=== PATIENT | female | born 1985 | race Caucasian/White ===

== ENCOUNTER 2020-09-04 19:26 | Emergency (ER) | payer OTHER, SELFPAY ==
--- NOTE | ~2020-09-04 | XR_ITS ---
EXAMINATION: XR chest 2V EXAM DATE: 09/04/2020 20:00 INDICATION: Left-sided chest pain radiating to back. TECHNIQUE: Frontal and lateral projections of the chest obtained and reviewed. There is no prior mad[place] dy for comparison. FINDINGS: The lungs are clear. There are no pleural effusions. The cardiomediastinal silhouette is within normal limits. There is no pneumothorax suspected. The bones and soft tissues are unremarkab le. IMPRESSION: Unremarkable chest x-ray exam. Reviewed, dictated and finalized at location A.
--- NOTE | 2020-09-04 19:33 | ECG_ITS ---
Measurements Intervals [place] Rate: 87 P: 52 PA: 152 QRS: 32 QRSD: 105 T: 56 QT: 358 QTc: 432 Interpretive Statements SINUS RHYTHM NORMAL ECG Electronically Signed On 09-05-2020 6:29:54 CDT by Sergey David D.O.
[2020-09-04 19:46] LABS: Basophils Absolute Auto 0.1 K/mm3 (0.0-0.1); Basophils Percent Auto 0.6 % (0.2-1.2); Eosinophils Absolute Auto 0.2 K/mm3 (0-0.3); Eosinophils Percent Auto 2.6 % (0-4.4); Hematocrit 41.6 % (37.0-47.0); Hemoglobin 13.4 g/dL (12.0-15.0); Immature Granulocyte Absolute 0.02 K/mm3 (0.00-0.031); Immature Granulocyte Percent A 0.2 % (0-0.5); Lymphocytes Absolute Auto 3.64 K/mm3 (0.9-3.2); Lymphocytes Percent Auto 38.7 % (18.3-44.2); Mean Corpuscular HGB Conc 32.2 g/dl (32-36); Mean Corpuscular Hemoglobin 27.6 pg (26-34); Mean Corpuscular Volume 85.8 fl (80-100); Mean Platelet Volume 10.8 fl (7.4-10.4); Monocytes Absolute Auto 0.6 K/mm3 (0.1-0.6); Monocytes Percent Auto 5.9 % (2.6-8.5); Neutrophils Absolute Auto 4.9 K/mm3 (1.3-6.7); Platelet Count Result 263 k/mm3 (150-375); Red Blood Count 4.85 M/mm3 (4.2-5.4); Red Cell Distribution Width 13.2 % (11.5-14.5); White Blood Count 9.4 K/mm3 (4.5-10.0)
[2020-09-04 19:57] LABS: Anion Gap 12 mmol/L (8-16); Blood Urea Nitrogen 12 mg/dL (7-17); Carbon Dioxide 26 mmol/L (22-30); Chloride 101 mmol/L (98-107); Estimated Glomerular Filt Rate > 60; Glucose 81 mg/dL (65-105); Potassium 3.7 mmol/L (3.4-5.0); Sodium 139 mmol/L (137-145)
[2020-09-04 20:06] VITALS: BP 145/92; PULSE 70; RESP 16; TEMP 36.8; O2SAT 100
[2020-09-04 20:09] LABS: Troponin I < 0.012 ng/mL (0.000-0.034)
[2020-09-04 20:31] LABS: Partial Thromboplastin Time 30.4 SECONDS (22.3-36.8)
[2020-09-04 22:56] VITALS: BP 122/82; PULSE 64; RESP 12; TEMP 36.6; O2SAT 100
[2020-09-04 23:29] LABS: Troponin I < 0.012 ng/mL (0.000-0.034)
[2020-09-04 23:42] VITALS: BP 124/69; PULSE 63; RESP 17; O2SAT 100
--- NOTE | 2020-09-04 23:53 | ED.CHESTPAIN ---
HPI - Chest Pain General Chief Complaint: Chest Pain Stated Complaint: chest discomfort Time Seen by Provider: 09/04/20 23:30 Source: patient and RN notes reviewed Mode of arrival: ambulatory Limitations: no limitations History of Present Illness HPI narrative: This is a 35 year old female who presents for evaluation of left chest pain. She states she has been having intermittent left chest pain for 2 weeks . She states this seems to occur when she gets stressed. She became worried today because she developed pain when she was not stressed. This pain is associated with abdominal bloating and increased belching as well. She denies sob, nausea, vomiting , cough or fever. She reports diarrhea 2 weeks ago. She reports normal bowel movements. She took Tums today without relief. She denies having chest pain currently but she feels abdominal bloating. Related Data Allergies Allergy/AdvReac Type Severity Reaction Status Date / Time shellfish derived Allergy Severe Swelling Verified 09/04/20 23:51 of Lip/Tongue/Throat Review of Systems Review of Systems: All systems reviewed & are unremarkable except as noted in HPI and below PMFSH Past Medical History Medical History (Updated 09/05/20 @ 00:45 by Minda Granger MD) Patient denies medical problems Surgical History Surgical History (Updated 09/04/20 @ 23:58 by Minda Granger MD) H/O section Family History Family History (Updated 11/07/15 @ 09:10 by DOCTOR UNKNOWN) Grandparent Diabetes mellitus Family history of mental disorder Hypertension Family history of elevated blood lipids Family history of arthritis Family history of aortic aneurysm Family history of type 2 diabetes mellitus Mother Family history of mental disorder Father Family history of elevated blood lipids Other Family history of cardiovascular disease Family history of malignant neoplasm Social History Social History Smoking status: Never smoker Alcohol intake: current Exam Const: General: no acute distress and alert Orientation/consciousness: patient oriented x3 Eyes: EOM: EOMs intact bilaterally Resp: Effort & Inspection: normal respiratory effort and no retractions Auscultation: clear to auscultation bilaterally Cardio: Rate: regular rate Rhythm: regular rhythm Heart sounds: no murmurs GI: GI Palp: Yes Soft to palpation, No Tenderness to palpation present (GI) and No Guarding due to palpation present (GI) Auscultation: normal bowel sounds Neuro: General: patient oriented x3, moves all extremities and CN's II-XI intact bilaterally Extrem: General: normal to inspection Psych: Mental Status: mental status grossly normal Affect: normal affect Course Reevaluation(s) Reevaluation #1: I have discussed with patient labs and EKG are unremarkable. Her symptoms are likely GI. She states she feels better after GI cocktail Date: 09/05/20 Time: 00:44 Vital Signs Vital signs: Vital Signs Temperature 98.3 F 09/04/20 20:06 Pulse Rate 70 09/04/20 20:06 Respiratory Rate 16 09/04/20 20:06 Blood Pressure 145/92 H 09/04/20 20:06 Pulse Oximetry 100 09/04/20 20:06 Temperature 97.8 F 09/04/20 22:56 Pulse Rate 63 09/04/20 23:42 Respiratory Rate 17 09/04/20 23:42 Blood Pressure 124/69 09/04/20 23:42 Pulse Oximetry 100 09/04/20 23:42 MDM - Chest Pain Lab Data Attestation: I reviewed the patient's lab results. Result diagrams: 09/04/20 19:40 09/04/20 19:40 Labs: Lab Results 09/04/20 09/04/20 09/04/20 Range/Units 19:40 19:40 19:40 WBC 9.4 (4.5-10.0) K/mm3 RBC 4.85 (4.2-5.4) M/mm3 Hgb 13.4 (12.0-15.0) g/dL Hct 41.6 (37.0-47.0) % MCV 85.8 (80-100) fl MCH 27.6 (26-34) pg MCHC 32.2 (32-36) g/dl RDW 13.2 (11.5-14.5) % Plt Count 263 (150-375) k/mm3 MPV 10.8 H (7.4-10.4) fl Immature Gran % (Auto) 0.2 (0-0.5) %
[2020-09-04 23:58] LABS: Alanine Aminotransferase 21 U/L (4-35); Albumin Level 4.7 g/dL (3.5-5.1); Alkaline Phosphatase 51 U/L (38-126); Aspartate Amino Transferase 29 U/L (14-36); Bilirubin,Total 0.2 mg/dL (0.2-1.3); Lipase 82 U/L (23-300)
[2020-09-05] MEDS: BELLADONNA ALK/PHENOB ELIX 10 ML, MAG HYDROX/ALUMINUM HYD/SIMETH 30 ML, LIDOCAINE HCL 2... PO (00:01)
== END 2020-09-05 01:01 | disposition home or self-care (01) ==
PROVIDERS: Emergency Provider General Practice; PCP Physician Assistant
DX: K21.9 Gastro-esophageal reflux disease without esophagitis (principal); R07.89 Other chest pain
CPT/HCPCS: 36415; 71046; 80048; 80076; 81025; 83690; 84484; 85025; 85610; 85730; 93005; 99284; A9270

== ENCOUNTER → 2020-09-20 07:56 | Outpatient (CLI) | payer OTHER, SELFPAY ==
--- NOTE | ~2020-09-20 | US_ITS ---
EXAMINATION: US right upper quadrant EXAM DATE: 09/20/2020 08:24 INDICATION: Indigestion. TECHNIQUE: Multiple grayscale and Doppler images of the abdomen right upper quadrant were obtained (b y a technologist who performed the scan) and subsequently reviewed. There is no prior study for akte garcia. FINDINGS: The pancreatic head and body are normal in appearance. The pancreatic tail is not visualized. The l iver has normal echogenicity and contour. There are no focal liver lesions identified. There is no evidence of intrahepatic biliary duct dilation. Portal venous flow was seen in the hepatopedal, nor mal direction and has normal Doppler waveform. No right-sided hydronephrosis. Common bile duct measures 4 mm, which is normal. The gallbladder wall is normal in thickness, with ex pected amount of distention. No sonographic evidence of pericholecystic fluid. There is no cholelit hiases. Technologist performing exam reports patient did not demonstrate sonographic Harris's sign. Please note that this sign is less reliable in patients who have received pain medication. IMPRESSION: 1. Unremarkable abdominal ultrasound exam. Reviewed, dictated and finalized at location B.
== END ==
PROVIDERS: PCP Physician Assistant; Visit Provider Physician Assistant
DX: K30 Functional dyspepsia (principal)
CPT/HCPCS: 76705

== ENCOUNTER → 2020-09-26 11:05 | Outpatient (CLI) | payer OTHER, SELFPAY ==
--- NOTE | ~2020-09-26 | XR_ITS ---
XR UGIAC wo kub DATE: 09/26/2020 11:56 INDICATION: Dyspepsia TECHNIQUE: Air-contrast upper gastrointestinal series DAP: 37.319 Gycm2 90 images Fluoroscopy time: 2.6 minutes COMPARISON: None FINDINGS: Normal deglutition and esophageal peristalsis. No stricture, mucosal fold thickening, erosi on, ulceration or intraluminal mass lesion of the esophagus, stomach or duodenum. The proximal small bowel mucosal pattern appears normal. IMPRESSION: Normal examination Reviewed, dictated and finalized at Location A. Reviewed, dictated and finalized at location B. IMPRESSION: Normal examination
== END ==
PROVIDERS: PCP Physician Assistant; Visit Provider Physician Assistant
DX: K30 Functional dyspepsia (principal)
CPT/HCPCS: 74246

== ENCOUNTER → 2021-01-28 09:16 | Outpatient (CLI) | payer OTHER, SELFPAY ==
[2021-01-28 19:12] LABS: SARS-CoV-2 RNA PCR Negative
== END ==
PROVIDERS: PCP Physician Assistant; Visit Provider Physician Assistant
DX: Z20.822 Contact with and (suspected) exposure to COVID-19 (principal)
CPT/HCPCS: C9803; U0003; U0005

== ENCOUNTER 2022-08-29 07:57 | Outpatient (RCR) | payer OTHER, SELFPAY ==
--- NOTE | 2022-08-29 09:29 | PC.NURSE ---
In- 0757 Out- 09 Reason for visit: Latch issues and a healing cracked nipple that gets reinjured. History: P3 Mother delivered at [facility] related to medical reasons with a repeat section. 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 Mother previously used a nipple shield for a while, however today is latching without a nipple shield. Mother states the feeding schedule in the NICU hospital was scheduled to reduce stress on . Milk came to full supply on day 3. Mother did do some pumping for awhile and noticed the connector on the pump that was primarily used on her left breast was cracked and possibly resulted in the left nipple injury that is healing. Mother states that every now and then it gets reinjured with a latch. Infant History: Infant elena Delcid spent 5 days in the NICU after delivery after being delivered at 36 1/7 weeks on 07[birth year]. Infant experienced separation from his mother, pacifier use, nipple shield use, and was on a strict schedule of every 3 hours rather than feeding on demand. Observations: Mother has a pleasant and relaxed disposition. is quiet, alert, and awake. Mother places a 'boppy pillow on her lap, supports her breast with a sandwich hold to facilitate a mouth full of breast for the , then latches to the right breast optimally. Infant demonstrates good rocking motion and appropriate suck/swallow ratios. When latching to the left it appears that infant is given the breast at times without a 130-150 degree open and mother was encouraged to wait for the big, wide, open gape, then bring the infant to the breast to obtain a deep latch with close to her body having the bottom tucked underneath the right breast, chin buried into the breast and the nose near. is not as hungry after 49 mls and that may be part of the reason infant is less inclined to open wide. Mother reminded to encourage the big, open, wide gape, then swiftly bring to the breast to get a deep latch. (Triple cheeseburger open type latching) RN encouraged mother to consider placing a pillow underneath the boppy or a rolled up towel (blanket or shirt) underneath her hand/wrist to assist in supporting and maintaining a deep latch. After latching optimally with good support mother states there's no pain after less than a minute. Pain initiated again after had an appropriate breastfeed and the suck was altered more for comfort and non-nutritive sucking instead of drinking at the breast. There's a popping sound heard with infant latched onto the left breast. Detaching infant, then latching with a deeper more optimal latch the popping went away. Mother was encouraged to detach when there's pain. weight: 6-13 Lowest weight: 6-8 Last weight: 8-08/18 Pre-feed weight: 9-12.5 (4437g) Post-feed weight: After on the right breast: 9-14.2 (4486g) After both breast: 10-1 (4566g) Plan of Care: Mother plans to be more attentive to positioning, optimal mouth opening, supporting the hold well, detaching when there is pain, and avoiding the pacifier for a couple of weeks as possible as to not work against encouraging the practicing of effective . Mother is encouraged to reduce the use of anything touching her breast that might have bacteria on it, to rinse the nipples considering a mild soap rinse, then expressing breast milk and allowing it to dry on her nipple for healing. Follow up plans: Mother voiced understanding of when to call her OB, ICP, and as needed with concerns.
== END 2022-11-27 23:59 | disposition home or self-care (01) ==
LOC: ANHOBOP 07:57
PROVIDERS: PCP Physician Assistant; Visit Provider Pediatrics
DX: O92.13 Cracked nipple associated with lactation (principal)
CPT/HCPCS: 99202; G0463

== ENCOUNTER 2023-07-30 08:33 | Outpatient (CLI) | payer OTHER, SELFPAY ==
--- NOTE | ~2023-07-30 | US_ITS ---
Limited Abdominal Sonogram: Real-time sonographic imaging of the right upper quadrant was performed. Clinical History: Right upper quadrant pain Findings: The liver appears normal with no evidence of mass lesion or bile duct dilatation. Main por marcos vein demonstrates normal direction of flow. The gallbladder is well distended, and appears normal with no evidence of gallstone or wall thickening. The common bile duct measures 4 mm. The visualize d pancreas, aorta, and IVC are unremarkable. Impression: No significant abnormality seen. Reviewed, dictated and finalized at location M. Impression: No significant abnormality seen.
== END 2023-07-30 08:34 ==
LOC: GOSHIMG 08:33
PROVIDERS: PCP Physician Assistant; Visit Provider Physician Assistant
DX: R10.11 Right upper quadrant pain (principal)
CPT/HCPCS: 76705

== ENCOUNTER 2024-01-07 14:06 | Outpatient (CLI) | payer OTHER, SELFPAY ==
--- NOTE | ~2024-01-07 | XR_ITS ---
Cervical Spine: AP, lateral, open-mouth views Clinical History: Pain Findings: The normal lordotic curve is maintained. The vertebral bodies and posterior elements appea r intact. The intervertebral disc spaces are well maintained. Pre-vertebral soft tissues are unremar kable. Impression: No significant abnormality is seen. Reviewed, dictated and finalized at [facility]. MAN Impression: No significant abnormality is seen.
--- NOTE | ~2024-01-07 | XR_ITS ---
Left Shoulder Technique: AP and scapular Y views were obtained. Clinical History: Pain Findings: No fracture or dislocation is seen. Osseous alignment is anatomic. The glenohumeral and acr omioclavicular joint spaces are preserved. Soft tissues are unremarkable. Impression: Unremarkable left shoulder radiographs. Reviewed, dictated and finalized at [facility]. LE SUPERVISOR Impression: Unremarkable left shoulder radiographs.
== END 2024-01-07 14:07 | disposition home or self-care (01) ==
LOC: GOSHIMG 14:07
PROVIDERS: PCP Physician Assistant; Visit Provider Physician Assistant
DX: M25.512 Pain in left shoulder (principal); M54.12 Radiculopathy, cervical region
CPT/HCPCS: 72040; 73030

== ENCOUNTER 2024-02-21 17:45 | Emergency (ER) | payer OTHER, SELFPAY ==
[2024-02-21 17:57] VITALS: BP 124/76; PULSE 73; RESP 16; TEMP 36.7; O2SAT 99
--- NOTE | 2024-02-21 18:10 | ED_ITS ---
HPI - Ear Problem General Chief complaint: Ear Stated complaint: Ear Pain Time Seen by Provider: 02/21/24 18:01 Source: patient and RN notes reviewed Mode of arrival: ambulatory Limitations: no limitations History of Present Illness HPI Narrative: Patient presents today with left ear pain times 10 days. She is currently on day 8 of cefdinir for otitis media. She has also finished 5 days of prednisone. She reports occasional congestion. No decreased hearing or ear drainage. Currently rates her pain 5/10 and has tried Tylenol and Mucinex without relief. Related Data Home Medications ?Medication ?Instructions ?Recorded ?Confirmed ?Last Taken ?Type cefdinir 300 mg capsule mg 02/21/24 Unknown History escitalopram oxalate 10 mg tablet mg 02/21/24 Unknown History Allergies Allergy/AdvReac Type Severity Reaction Status Date / Time shellfish derived Allergy Severe Swelling Verified 02/21/24 17:53 of Lip/Tongue/Throat Review of Systems Review of Systems: CONSTITUTIONAL: Denies body aches, fever, chills, or sweats. EYES: Denies visual changes, redness, or discharge. ENT: Denies rhinorrhea, congestion, sore throat. + left ear pain CARDIOVASCULAR: Denies chest pain, palpitations, or edema. RESPIRATORY: Denies cough or dyspnea. GASTROINTESTINAL: Denies abdominal pain, nausea, vomiting, or diarrhea. GENITOURINARY: Denies dysuria or hematuria. SKIN: Denies rash, itching, or wounds. MUSCULOSKELETAL: Denies back pain, joint pain, or myalgia. NEUROLOGIC: Denies headache, numbness, tingling, or weakness. PSYCH: Denies depression or anxiety. [facility] Past Medical History Medical History Patient denies medical problems Surgical History Surgical History H/O section Family History Family History Grandparent Diabetes mellitus Family history of mental disorder Hypertension Family history of elevated blood lipids Family history of arthritis Family history of aortic aneurysm Family history of type 2 diabetes mellitus Mother Family history of mental disorder Father Family history of elevated blood lipids Other Family history of cardiovascular disease Family history of malignant neoplasm Social History Social History Smoking status: Never smoker Alcohol intake: current Comments At time of signature, I have reviewed and agree with nursing past medical, surgical, social and family history unless otherwise noted. Please see nursing chart for further information. There is no relevant family history pertinent to the presenting complaint Exam Narrative: GENERAL: Well-appearing, well-nourished, and in no acute distress. HEAD: Normocephalic, atraumatic. EYES: EOMI. No redness or drainage. Conjunctivae normal. ENT: Mucous membranes pink and moist. Nares clear. No rhinorrhea. Right TM normal. Left TM with mild serous effusion without evidence of bacterial infection. NECK: Normal AROM. EXTREMITIES: Normal range of motion. No edema. SKIN: Warm, dry, no rash. Capillary refill normal. Normal skin turgor. NEURO: No focal deficits. Alert and oriented x3. Gait steady. PSYCH: Normal affect. No signs of depression or anxiety. Course Course Level of Care: Express Care Visit Vital Signs Vital signs: Vital Signs Temperature 98.1 F 02/21/24 17:57 Pulse Rate 73 02/21/24 17:57 Respiratory Rate 16 02/21/24 17:57 Blood Pressure 124/76 02/21/24 17:57 Pulse Oximetry 99 02/21/24 17:57 Temperature 98.1 F 02/21/24 17:57 Pulse Rate 73 02/21/24 17:57 Respiratory Rate 16 02/21/24 17:57 Blood Pressure 124/76 02/21/24 17:57 Pulse Oximetry 99 02/21/24 17:57 Reviewed Medical Decision Making MDM Narrative Medical decision making narrative: Patient has been diagnosed with left-sided serous otitis. Recommend Sudafed and Flonase to help equalize. Anticipatory guidance given. Differential Diagnosis Differential Diagnosis: Otitis media, otitis externa, ruptured TM, serous otitis, cerumen impaction Vital Signs Vital Signs: Vital Signs Temperature 98.1 F 02/21/24 17:57 Pulse Rate 73 02/21/24 17:57 Respiratory Rate 16 02/21/24 17:57 Blood Pressure 124/76 02/21/24 17:57 Pulse Oximetry 99 02/21/24 17:57 Temperature 98.1 F 02/21/24 17:57 Pulse Rate 73 02/21/24 17:57 Respiratory Rate 16 02/21/24 17:57 Blood Pressure 124/76 02/21/24 17:57 Pulse Oximetry 99 02/21/24 17:57 Critical Care Time Critical Care Time Critical Care Time: No Discharge Plan Discharge Clinical Impression: Acute serous otitis media, left ear Patient Disposition: Home, Self-Care Condition: Stable Instructions: Fluid In The Ear (Serous Otitis Media) (ED) Additional Instructions: Your ear is not infected today. You have a collection of fluid behind the eardrum. Try some Sudafed or Flonase to help drain the fluid. Follow-up with your PCP or ENT physician in 1 week if symptoms are not improving. Your blood pressure was elevated above 120/80 today at Urgent Care. This puts you above the threshold for follow up. Please schedule a followup visit with your personal physician as soon as possible, for further evaluation and treatment. Even blood pressure exceeding 120/80 may indicate pre-hypertension. Patient Language: Mongolian Prescriptions: No Action cefdinir 300 mg capsule escitalopram oxalate 10 mg tablet Follow-up/Referrals: Leigh,MICHAEL Heard [Primary Care Provider] - Time of Disposition: 18:13
== END 2024-02-21 18:18 | disposition home or self-care (01) ==
PROVIDERS: Emergency Provider Nurse Practitioner; PCP Physician Assistant
DX: H65.02 Acute serous otitis media, left ear (principal)
CPT/HCPCS: 99211; 99213; G0463

== ENCOUNTER 2024-11-22 18:41 | Emergency (ER) | payer OTHER, SELFPAY ==
[2024-11-22 18:51] VITALS: BP 116/76; PULSE 84; RESP 16; TEMP 36.5; O2SAT 99
--- NOTE | 2024-11-22 18:57 | ED.URI ---
HPI - URI/Sore Throat General Chief Complaint: Upper Respiratory Infection Stated Complaint: cold, ear pain, swollen L cheek Time Seen by Provider: 11/22/24 18:57 Source: patient and RN notes reviewed Mode of arrival: ambulatory Limitations: no limitations History of Present Illness HPI Narrative: 39-year-old female presents with concern of for over 1 week history of sinus congestion, pressure, pain. Reports she has had left-sided sinus swelling and ear pain over the last day. She has taken [id number] medications without relief. Reports fever, body aches. MD elicited complaint: nasal congestion, sinus pain and other (ear pain) Related Data Home Medications ?Medication ?Instructions ?Recorded ?Confirmed ?Last Taken ?Type escitalopram oxalate 10 mg tablet mg 02/21/24 Unknown History Allergies Allergy/AdvReac Type Severity Reaction Status Date / Time shellfish derived Allergy Severe Swelling Verified 11/22/24 18:51 of Lip/Tongue/Throat Review of Systems Review of Systems: CONSTITUTIONAL: Reports malaise, fever. EYES: Denies visual changes, redness, or discharge. ENT: Reports rhinorrhea, congestion, sinus pain, otalgia CARDIOVASCULAR: Denies chest pain, palpitations, or edema. RESPIRATORY: Reports cough. Denies dyspnea. GASTROINTESTINAL: Denies abdominal pain, nausea, vomiting, diarrhea SKIN: Denies rash or itching. MUSCULOSKELETAL: Denies myalgia. NEUROLOGIC: Denies headache. All systems reviewed & are unremarkable except as noted in HPI and below PMFSH Past Medical History Medical History Patient denies medical problems Surgical History Surgical History H/O section Family History Family History Grandparent Diabetes mellitus Family history of mental disorder Hypertension Family history of elevated blood lipids Family history of arthritis Family history of aortic aneurysm Family history of type 2 diabetes mellitus Mother Family history of mental disorder Father Family history of elevated blood lipids Other Family history of cardiovascular disease Family history of malignant neoplasm Social History Social History Smoking status: Never smoker Alcohol intake: current Comments At time of signature, agree with nursing past medical, surgical, social and family history. There is no relevant family history pertinent to the presenting complaint Exam Narrative: GENERAL: Well-appearing, well-nourished, and in no acute distress. HEAD: Normocephalic EYES: PERRLA, conjunctivae clear ENT: Nares clear, turbinates edematous and erythematous, left-sided sinus swelling noted. Mucous membranes moist. TM pearly wong with dull light reflex on the right, erythematous on the left; no tragal tenderness. Oropharynx not erythematous without lesions. Tonsils not enlarged and without exudate, no drooling, no hoarseness, no trismus, uvula midline. NECK: Supple. No lymphadenopathy CHEST: Clear to auscultation, breath sounds equal. No wheezing, rhonchi, rales, or stridor. No respiratory distress, speaks in full sentences. HEART: Regular rate and rhythm. No murmur heard. SKIN: Warm, dry, no rash. NEURO: Alert and oriented x3. PSYCH: Normal mood and affect Course Course Emergency Course: Patient is aware of diagnosis, understands and agrees to treatment plan. Anticipatory guidance given. Patient agrees to follow-up as directed and is aware of reasons to seek care at the emergency department. Portions of this record may have been created with voice recognition software Level of Care: Express Care Visit Vital Signs Vital signs: Vital Signs Temperature 97.7 F 11/22/24 18:51 Pulse Rate 84 11/22/24 18:51 Respiratory Rate 16 11/22/24 18:51 Blood Pressure 116/76 11/22/24 18:51 Pulse Oximetry 99 11/22/24 18:51 Temperature 97.7 F 11/22/24 18:51 Pulse Rate 84 11/22/24 18:51 Respiratory Rate 16 11/22/24 18:51 Blood Pressure 116/76 11/22/24 18:51 Pulse Oximetry 99 11/22/24 18:51 Reviewed. MDM - URI/Sore Throat MDM Narrative Medical decision making narrative: Differential diagnosis considered: Spears virus, strep pharyngitis, allergic rhinitis, upper respiratory tract infection, sinusitis, rhinosinusitis, nasopharyngitis. viral pharyngitis, otitis media, otitis externa, pneumonia, bronchitis, viral cough syndrome, viral syndrome, and influenza. Exam findings show no acute concerns or changes; patient is non-toxic appearing and is in no distress. Patient is appropriate for outpatient treatment and follow-up. Lab Data Attestation: I reviewed the patient's lab results. Critical Care Time Critical Care Time Critical Care Time: No Discharge Plan Discharge Clinical Impression: Sinusitis Patient Disposition: Home Condition: Stable Instructions: Antibiotic Form, Sinusitis (ED) Additional Instructions: Take medications as prescribed Nonprescription pain medications, such as acetaminophen (eg, Tylenol) or ibuprofen (eg, Motrin, Advil), are recommended for pain. Flushing the nose and sinuses with a saline solution several times per day has been proven to decrease pain associated with congestion and shorten the duration of symptoms. Medications to thin secretions (such as guaifenesin) may help to clear mucus. Please follow-up with your primary care doctor in the next 1-2 days. If you cannot follow-up with your primary care doctor please go to the ED for any urgent issues. If you have any worsening of symptoms or any other concerns please go to the ED immediately. Patient Language: Italian Prescriptions: New prednisone 20 mg tablet 40 mg PO DAILY 5 Days Qty: 10 0RF amoxicillin-pot clavulanate 875-125 mg tablet 1 tablet PO Q12H 10 Days Qty: 20 0RF promethazine-DM 6.25-15 mg/5 mL syrup 5 ml PO Q4-6H PRN (Reason: cough) Qty: 120 0RF No Action escitalopram oxalate 10 mg tablet Follow-up/Referrals: Leigh,MICHAEL Heard [Primary Care Provider, Unknown] Stand Alone Forms: Work/School Release IP Time of Disposition: 19:03
== END 2024-11-22 19:09 | disposition home or self-care (01) ==
PROVIDERS: Emergency Provider Nurse Practitioner; PCP Physician Assistant
DX: J32.9 Chronic sinusitis, unspecified (principal)
CPT/HCPCS: 99213; G0463